=== PATIENT | male | born 1985 | race Hispanic/Latino ===

== ENCOUNTER 2018-03-07 20:03 | Emergency (ER) | payer SELFPAY ==
[~2018-03-07] VITALS: Ht 154.9 cm; Wt 79.2 kg
[2018-03-07] MEDS ORDERED: ORPHENADRINE100 MG PO (22:59)
[2018-03-07] MEDS ORDERED: IBUPROFEN600 MG PO (22:59)
[2018-03-07 23:14] VITALS: BP 150/90
== END 2018-03-07 23:30 | disposition home or self-care (01) | DRG 552 ==
LOC: ED 20:03
DX: S16.1XXA Strain of muscle, fascia and tendon at neck level, initial encounter (principal); X58.XXXA Exposure to other specified factors, initial encounter

== ENCOUNTER 2018-03-24 09:52 | Emergency (ER) | payer SELFPAY ==
[~2018-03-24] VITALS: Ht 154.9 cm; Wt 85.0 kg
[~2018-03-24 09:52] MED LIST: IBUPROFEN600 MG PO; ORPHENADRINE100 MG PO
[2018-03-24] MEDS ORDERED: TAM75CAP PO (10:04)
[2018-03-24 10:19] VITALS: BP 132/87
== END 2018-03-24 10:35 | disposition home or self-care (01) | DRG 153 ==
LOC: ED 09:52
DX: J11.1 Influenza due to unidentified influenza virus with other respiratory manifestations (principal)